=== PATIENT | male | born 1995 | race American Indian/Alaskan Native ===

== ENCOUNTER 2017-02-25 08:25 | Emergency (ER) | payer OTHER ==
[2017-02-25] MEDS ORDERED: ZOFRAN ODT PO ONE (10:46)
[2017-02-25] MEDS ORDERED: NORCO 5/325 PO ONE (10:46)
--- NOTE | 2017-02-25 11:25 | XRay Report ---
PORTABLE CHEST: An AP portable view of the chest demonstrates a normal cardiac contour considering the limits of this technique. The lungs are clear with no evidence of infiltrate, fluid or failure. IMPRESSION: Normal portable chest.
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
[2017-02-25 12:55] VITALS: BP 125/78
== END 2017-02-25 13:33 | disposition home or self-care (01) ==
LOC: ED 08:25
DX: R07.9 Chest pain, unspecified (principal); V59.49XA Driver of pick-up truck or van injured in collision with other motor vehicles in traffic accident, initial encounter; Y92.488 Other paved roadways as the place of occurrence of the external cause; Y93.89 Activity, other specified; Y99.8 Other external cause status
CPT/HCPCS: 71010; 93005; 93010; Q0162

== ENCOUNTER 2020-07-20 18:08 | Emergency (ER) | payer SELFPAY ==
[2020-07-20 18:27] VITALS: BP 115/79
[2020-07-20] MEDS ORDERED: IBUPROFEN 600 MG TAB PO ONE (18:46)
[2020-07-20] MEDS ORDERED: HYDROcodone/ACETAMINOPHEN 5-325 MG TAB PO ONE (18:46)
[2020-07-20] MEDS ORDERED: ONDANSETRON 4 MG ODT TAB PO ONE (18:46)
--- NOTE | 2020-07-20 19:21 | XRay Report ---
Right knee 3 views INDICATION: Right knee pain. IMPRESSION: Large right knee effusion. No fracture is identified. There is a square-shaped opacity pr ojecting over the soft tissues of the right upper foreleg of uncertain clinical significance. Signer Name: Anthony Herman MD Signed: 07/20/2020 7:16 PM Workstation Name: [id number]
--- NOTE | 2020-07-20 19:49 | Emergency Department Report ---
ED Lower Extremity HPI - General Chief Complaint: Extremity Injury, Lower Stated Complaint: RT KNEE INJURY Source: patient Mode of arrival: Ambulatory Limitations: No Limitations - History of Present Illness Initial Comments: Patient is a 25-year-old -[place] male with no past medical history presents to the ED with complaint of acute onset persistent severe right knee pain with mild swelling after he tripped and fell down during a basketball game 24 hours ago. Patient states that he had a pop sound when he fell but initially thought the injury was minor. Patient states that in the last 12 hours the pain has been worsening and such that he is unable to bear weight on the right leg because of severe pain. Patient denies head or neck injuries, back pain, neck p ain, dizziness, syncope, seizures, numbness and tingling or weakness of upper and lower extremities bilaterally, loss of consciousness, headache, shortness of breath, or chest pain. MD Complaint: knee injury (right knee pain) -: Sudden, hour(s) (24) Injury: Knee: Right (pain, swelling) - Related Data Previous Rx's Medication Instructions Recorded Last Taken Type Baclofen 20 mg PO Q8H PRN #15 tablet 07/20/20 Unknown Rx Ibuprofen [Motrin 800 MG tab] 800 mg PO Q8HR PRN #30 tablet 07/20/20 Unknown Rx traMADoL [Ultram 50 MG tab] 50 mg PO Q6HR PRN #12 tablet 07/20/20 Unknown Rx Allergies Allergy/AdvReac Type Severity Reaction Status Date / Time No Known Allergies Allergy Verified 07/20/20 18:21 ED Review of Systems ROS: Stated complaint: RT KNEE INJURY Other details as noted in HPI Constitutional: denies: chills, fever Eyes: denies: eye pain, eye discharge, vision change ENT: denies: ear pain, throat pain Respiratory: denies: cough, shortness of breath, wheezing Cardiovascular: denies: chest pain, palpitations Endocrine: no symptoms reported Gastrointestinal: denies: abdominal pain, nausea, diarrhea Genitourinary: denies: urgency, dysuria Musculoskeletal: arthralgia (Right knee pain with mild swelling). denies: back pain, joint swelling Skin: denies: rash, lesions Neurological: denies: headache, weakness, paresthesias Psychiatric: denies: anxiety, depression Hematological/Lymphatic: denies: easy bleeding, easy bruising ED Past Medical Hx - Past Medical History Previous Medical History?: No - Surgical History Past Surgical History?: No - Social History Smoking Status: Never Smoker Substance Use Type: Alcohol - Medications Home Medications: Home Medications Medication Instructions Recorded Confirmed Last Taken Type Baclofen 20 mg PO Q8H PRN #15 tablet 07/20/20 Unknown Rx Ibuprofen [Motrin 800 MG tab] 800 mg PO Q8HR PRN #30 tablet 07/20/20 Unknown Rx traMADoL [Ultram 50 MG tab] 50 mg PO Q6HR PRN #12 tablet 07/20/20 Unknown Rx ED Physical Exam - General Limitations: No Limitations General appearance: alert, in no apparent distress - Head Head exam: Present: atraumatic, normocephalic, normal inspection - Eye Eye exam: Present: normal appearance, PERRL, EOMI Pupils: Present: normal accommodation - ENT ENT exam: Present: normal exam, normal orophraynx, mucous membranes moist, TM's normal bilaterally, normal external ear exam - Neck Neck exam: Present: normal inspection, full ROM - Respiratory Respiratory exam: Present: normal lung sounds bilaterally. Absent: respiratory distress, wheezes, rales, chest wall tenderness, accessory muscle use, decreased breath sounds, prolonged expiratory - Cardiovascular Cardiovascular Exam: Present: regular rate, normal rhythm, normal heart sounds. Absent: systolic murmur, diastolic murmur, rubs, gallop - GI/Abdominal GI/Abdominal exam: Present: soft, normal bowel sounds. Absent: tenderness, guarding, rebound, hyperactive bowel sounds, hypoactive bowel sounds, mass - Extremities Exam Extremities exam: Present: normal inspection, tenderness (Palpable right knee tenderness and mild swelling with limited range of motion due to pain), normal capillary refill, joint swelling. Absent: full ROM (Limited range of motion of right knee due to pain), pedal edema - Back Exam Back exam: Present: normal inspection, full ROM. Absent: tenderness, CVA tenderness (R), CVA tenderness (L), muscle spasm, paraspinal tenderness, vertebral tenderness - Neurological Exam Neurological exam: Present: alert, oriented X3, CN II-XII intact, normal gait, reflexes normal - Psychiatric Psychiatric exam: Present: normal affect, normal mood - Skin Skin exam: Present: warm, dry, intact, normal color. Absent: rash ED Course Vital Signs 07/20/20 07/20/20 07/20/20 18:24 18:52 18:53 Temperature 98.6 F Pulse Rate 68 Respiratory 16 18 18 Rate Blood Pressure 115/79 O2 Sat by Pulse 99 Oximetry ED Lower Extremity MDM - Radiology Data Radiology results: report reviewed, image reviewed Findings [facility] [address] [place] [address] XRay Report Signed Patient: SHAI HIGHTOWER MR#: [id number] : 1995 Acct:[id number] Age/Sex: 25 / M ADM Date: 07/20/20 Loc: ED Attending Dr: Ordering Physician: GILLIAN ARELLANO Date of Service: 07/20/20 Procedure(s): XR knee 3V RT Accession Number(s): [id number] cc: GILLIAN ARELLANO Fluoro Time In Minutes: Right knee 3 views INDICATION: Right knee pain. IMPRESSION: Large right knee effusion. No fracture is identified. There is a square-shaped opacity projecting over the soft tissues of the right upper foreleg of uncertain clinical significance. Signer Name: Anthony Herman MD Signed: 07/20/2020 7:16 PM Workstation Name: [id number] Transcribed By: BC Dictated By: Anthony Herman MD Electronically Authenticated By: Anthony Herman MD Signed Date/Time: 07/20/201915 DD/ 14 TD/TT: - Medical Decision Making This is a 25-year-old -[place] male with no past medical history presents to the ED with complaint of acute onset persistent severe right knee pain with mild swelling after he tripped and fell down during a basketball game 24 hours ago. Patient states that he had a pop sound when he fell but initially thought the injury was minor. Patient states that in the last 12 hours the pain has been worsening and such that he is unable to bear weight on the right leg because of severe pain. In the ED, patient is alert and oriented x3 and is not in distress. Patient however appears to be in significant pain. Patient ambulating in the ED with crutches. Patient was treated for pain in the ED. Right knee x-ray shows no acute fractures or subluxations but right knee effusion. Patient's right knee was splinted with David wrap and the patient was discharged home on pain medications and advised to follow-up with his primary care physician in 5 to 7 days for reevaluation. Patient was advised return to the ED immediately if symptoms get worse. - Differential Diagnosis knee fracture; knee contusion; knee sprain; knee muscle strain Critical care attestation.: If time is entered above; I have spent that time in minutes in the direct care of this critically ill patient, excluding procedure time. ED Disposition Clinical Impression: Sprain of right knee Qualifiers: Encounter type: initial encounter Involved ligament of knee: unspecified ligament Qualified Code(s): S83.91XA - Sprain of unspecified site of right knee, initial encounter Contusion of right knee Qualifiers: Encounter type: initial encounter Qualified Code(s): S80.01XA - Contusion of right knee, initial encounter Disposition: TO HOME OR SELFCARE Is pt being admited?: No Does the pt Need Aspirin: No Condition: Stable Instructions: Knee Sprain, Adult, [id number], Contusion, [id number] Additional Instructions: The x-ray of your right knee shows no acute fractures or subluxations but some effusion in the joint. Therefore take medications with food, drink plenty of fluids, apply the knee brace as advised. Follow-up with your primary care physician in 5 to 7 days for reevaluation, return to the ED immediately if symptoms get worse. Prescriptions: Baclofen 20 mg PO Q8H PRN #15 tablet PRN Reason: Muscle Spasm Ibuprofen [Motrin 800 MG tab] 800 mg PO Q8HR PRN #30 tablet PRN Reason: Pain traMADoL [Ultram 50 MG tab] 50 mg PO Q6HR PRN #12 tablet PRN Reason: Pain Referrals: [facility] [Provider Group] - 3-5 Days Time of Disposition: 19:50 Print Language: [place] ISLANDER
== END 2020-07-20 20:18 | disposition home or self-care (01) ==
LOC: ED 18:08
DX: S83.91XA Sprain of unspecified site of right knee, initial encounter (principal); S80.01XA Contusion of right knee, initial encounter; Z79.899 Other long term (current) drug therapy; W01.0XXA Fall on same level from slipping, tripping and stumbling without subsequent striking against object, initial encounter; Y93.89 Activity, other specified; Y92.89 Other specified places as the place of occurrence of the external cause; Y99.8 Other external cause status
CPT/HCPCS: 99283; Q0162

== ENCOUNTER 2021-07-21 23:01 | Emergency (ER) | payer SELFPAY ==
[2021-07-22 01:20] VITALS: BP 111/72
--- NOTE | 2021-07-22 01:22 | Emergency Department Report ---
ED Lower Extremity HPI - General Stated Complaint: KNEE INJURY Time Seen by Provider: 07/22/21 01:16 - History of Present Illness Initial Comments: Patient presents secondary left knee pain. He was playing basketball earlier in the day and fell. He injured his knee by landing on it. He states that his knee also twisted. Pain is primarily in the lateral aspect of the left knee. He did not hit his head or lose consciousness. He has no ankle pain or hip pain. He has never injured his left knee before. Pain is constant and aching. It is worse with movement and palpation. It is worse with weightbearing. - Related Data Previous Rx's Medication Instructions Recorded Last Taken Type Ibuprofen [Motrin 800 MG tab] 800 mg PO Q8HR PRN #30 tablet 07/22/21 Unknown Rx Allergies Allergy/AdvReac Type Severity Reaction Status Date / Time No Known Allergies Allergy Verified 07/20/20 18:21 ED Review of Systems ROS: Stated complaint: KNEE INJURY Other details as noted in HPI Comment: All other systems reviewed and negative Constitutional: denies: fever Eyes: denies: vision change ENT: denies: throat pain Respiratory: denies: cough Cardiovascular: denies: chest pain Endocrine: denies: unexplained weight loss Gastrointestinal: denies: vomiting Genitourinary: denies: dysuria Musculoskeletal: as per HPI Skin: denies: rash Neurological: denies: headache Hematological/Lymphatic: denies: easy bruising ED Past Medical Hx - Past Medical History Previous Medical History?: No - Family History Family history: no significant - Social History Smoking Status: Never Smoker Substance Use Type: Alcohol - Medications Home Medications: Home Medications Medication Instructions Recorded Confirmed Last Taken Type Ibuprofen [Motrin 800 MG tab] 800 mg PO Q8HR PRN #30 tablet 07/22/21 Unknown Rx ED Physical Exam - General Limitations: No Limitations, Other (pulse ox normal) General appearance: alert, in no apparent distress - Head Head exam: Present: atraumatic, normocephalic - Eye Eye exam: Present: normal appearance, EOMI - ENT ENT exam: Present: normal external ear exam - Neck Neck exam: Present: normal inspection, full ROM - Respiratory Respiratory exam: Absent: respiratory distress - Cardiovascular Cardiovascular Exam: Absent: JVD - Extremities Exam Extremities exam: Present: normal capillary refill, other (TTP laterally to left knee. Patella NT. No ligamentous instability w/ant or post drawer.). Absent: calf tenderness - Back Exam Back exam: Present: full ROM - Neurological Exam Neurological exam: Present: alert, oriented X3, abnormal gait (antalgic) - Psychiatric Psychiatric exam: Present: normal affect, normal mood - Skin Skin exam: Present: warm, dry ED Course Vital Signs 07/22/21 01:18 Temperature 98.6 F Pulse Rate 64 Respiratory 20 Rate Blood Pressure 111/72 O2 Sat by Pulse 100 Oximetry - Reevaluation(s) Reevaluation #1: 07/22/21 01:17 XR ordered. Reevaluation #2: 07/22/21 01:35 Radiographs are reviewed. Patient was discharged. ED Lower Extremity MDM - Radiology Data Radiology results: report reviewed - Medical Decision Making Patient presents secondary to left knee pain after a fall. He has no evidence of acute fracture or dislocation. There is no obvious ligamentous instability with anterior posterior drawer, but he does guard somewhat against exam. Patient may benefit from outpatient MRI. There is no effusion at this time. Patella is not ballotable. He has no other pain in the extremity. Critical Care Time: No Critical care attestation.: If time is entered above; I have spent that time in minutes in the direct care of this critically ill patient, excluding procedure time. ED Disposition Clinical Impression: Fall Qualifiers: Encounter type: initial encounter Qualified Code(s): W19.XXXA - Unspecified fall, initial encounter Left knee sprain Qualifiers: Encounter type: initial encounter Involved ligament of knee: lateral collateral ligament Qualified Code(s): S83.422A - Sprain of lateral collateral ligament of left knee, initial encounter Disposition: HOME / SELF CARE / HOMELESS Is pt being admited?: No Condition: Stable Instructions: How to Use Cold Therapy, Ladu-[id number]-[id number], Knee Sprain, Adult, Xolf-fe-Coty, How to Use a Knee Brace Additional Instructions: ICE AND ELEVATE. RETURN FOR PROBLEMS. SEE YOUR DOCTOR OR THE REFERRAL DOCTOR FOR RECHECK. Prescriptions: Ibuprofen [Motrin 800 MG tab] 800 mg PO Q8HR PRN #30 tablet PRN Reason: Pain Referrals: PRIMARY CARE, [Primary Care Provider] - 3-5 Days LILIANA ESTEVEZ MD [Staff Physician] - 3-5 Days NATALIE LEES MD [Staff Physician] - 3-5 Days
--- NOTE | 2021-07-22 01:47 | XRay Report ---
LEFT KNEE 3 VIEW(S) INDICATION / CLINICAL INFORMATION: fall COMPARISON: None available. FINDINGS: BONES / JOINT(S): No acute fracture or subluxation. No significant arthritis. SOFT TISSUES: No significant abnormality. ADDITIONAL FINDINGS: None. IMPRESSION: 1.No acute findings. No significant abnormality. Signer Name: Duke Smith II, MD Signed: 07/22/2021 1:42 AM Workstation Name: [id number]
== END 2021-07-22 02:07 | disposition home or self-care (01) ==
LOC: ED 23:01
DX: S83.422A Sprain of lateral collateral ligament of left knee, initial encounter (principal); Z72.89 Other problems related to lifestyle; W18.39XA Other fall on same level, initial encounter; Y93.89 Activity, other specified; Y92.89 Other specified places as the place of occurrence of the external cause; Y99.8 Other external cause status
CPT/HCPCS: 99283